=== PATIENT | female | born 1985 | race Caucasian/White ===

== ENCOUNTER 2021-07-18 18:47 | Inpatient (IN) | payer MEDICAID, SELFPAY ==
[2021-07-18] VITALS (46 sets, daily range): BP systolic 113–193; BP diastolic 68–162; PULSE 81–115; TEMP 36.1; O2SAT 77–100
--- NOTE | ~2021-07-18 | US_ITS ---
EXAMINATION: US OB follow up DATE: 07/18/2021 20:10 INDICATION: with contractions. No care. TECHNIQUE: Real-time ultrasound of the pelvis was performed. The interpreting radiologist was not pre sent for the study. COMPARISON: None. FINDINGS: There is a single living fetus in vertex presentation. The placenta is anterior. heart rate is 131 beats per minute (bpm). The amniotic fluid index is 3.3 cm, which is patent and 3 standard torsten ations below the mean (2.5th%-97.5%: 7.2-27.8 at 4 weeks estimated gestational age). The following biometric data were obtained: BPD: 8.4 cm -> 34 weeks 0 days Head circumference: 29.3 cm -> 32 weeks 2 days Abdominal circumference: 30.5 cm -> 34 weeks 3 days Femur length: 6.8 cm -> 35 weeks 0 days Borderline brachycephaly with cephalic index of 87.6 slightly greater within the normal range (70-86) . Head circumference to abdominal circumference ratio: 0.96 (normal range 0.95-1.11). Estimated weight: 2403 g (+/-) 360 g or 5 lbs. 5 oz. (+/-) 13 oz. IMPRESSION: 1. Single living fetus in vertex presentation with heart rate of 131 bpm. 2. Gestational age by ultrasound of 34 weeks 0 day(s) +/- 2 week(s) 3 day(s) with ultrasound estimate d date of delivery (GABRIELE) of 08/29/2021. Please correlate with clinical information or earlier ultrasou nds for most accurate GABRIELE. 3. Oligohydramnios with amniotic fluid index of 3.3 cm. Correlate clinically for leaking fluids. 4. Borderline brachycephaly. Reviewed, dictated and finalized at location [facility]. [facility] IMPRESSION: 1. Single living fetus in vertex presentation with heart rate of 131 bpm. 2. Gestational age by ultrasound of 34 weeks 0 day(s) +/- 2 week(s) 3 day(s) wi th ultrasound estimated date of delivery (GABRIELE) of 08/29/2021. Please correlate w ith clinical information or earlier ultrasounds for most accurate GABRIELE. 3. Oligohydramnios with amniotic fluid index of 3.3 cm. Correlate clinically fo r leaking fluids. 4. Borderline brachycephaly.
[2021-07-18] MEDS: LACTATED RINGERS 1,000 ML 125 ML IV CONT ×2 (19:33→20:20)
[2021-07-18] MEDS: AMPICILLIN 2 GM/NS 100 ML 2 GM/100 ML BAG IVPB (19:33)
--- NOTE | 2021-07-18 19:55 | PM.IMHP ---
H&P: HPI History of Present Illness Date/Time: 07/18/21 19:55 at approximately 33 weeks gestation based on reported LMP. She has had no care anywhere this . She had C section with first two pregnancies then in an ambulance with most recent 02/2020. She came ni with c/o contraction and was 7 cm on admission. She reports checking blood pressures at home with values >200. No MARTINEZ/visual changes. Chief Complaint: labor Review of Systems Review of Systems: All systems reviewed & are unremarkable except as noted in HPI and below Meds Vital Signs Vital Signs - 24 hr 07/18/21 19:33 07/18/21 19:46 Pulse Rate 100 92 Blood Pressure 166/112 H 163/121 H Exam Const: General: alert, awake and acute distress (with contractions) Resp: Auscultation: clear to auscultation bilaterally Cardio: Rate: regular rate Rhythm: regular rhythm GI: Inspection: non-distended GI Palp: Yes Soft to palpation and No Tenderness to palpation present (GI) : Bimanual exam- vagina & uterus: non-tender and enlarged (31-32 cm fundal height) Manual OB Exam: dilated 8 cm, effaced 75% (90%) and station -1 Extrem: General: no calf tenderness Right upper extremity: edema (1+ bilateral) Psych: Mental Status: mental status grossly normal Assessment and Plan Assessment and plan (1) labor in third trimester: Code(s): O60.03 - labor without delivery, third trimester Status: Acute Assessment and Plan: Advanced cervical dilation so unable to stop labor at this time (2) No care in current : Code(s): O09.30 - Supervision of with insufficient care, unspecified trimester Status: Acute Assessment and Plan: Check labs and will request social work consult . Tox screen pending (3) Gestational hypertension: Code(s): O13.9 - Gestational [-induced] hypertension without significant proteinuria, unspecified trimester Status: Acute Assessment and Plan: Possible severe preeclampsia based on severe range BP. Labs drawn and pending. Asymptomatic. Will observe closely and consider magnesium and/or medications if BP persistently elevated (4) Previous delivery, antepartum condition or complication: Code(s): O34.219 - Maternal care for unspecified type scar from previous delivery Status: Acute Assessment and Plan: She had two prior C sections and one . She agrees to proceed with TOLAC/ since she's in advanced labor. We discussed risks, benefits, complications, and alternatives. She expressed understanding and declines C section at this point
[2021-07-18 20:00] LABS: Basophils Absolute Auto 0.1 K/mm3 (0.0-0.1); Basophils Percent Auto 0.4 % (0.2-1.2); Eosinophils Percent Auto 0.2 % (0-4.4); Hematocrit 42.1 % (37.0-47.0); Hemoglobin 14.1 g/dL (12.0-15.0); Immature Granulocyte Absolute 0.04 K/mm3 (0.00-0.031); Immature Granulocyte Percent A 0.3 % (0-0.5); Lymphocytes Absolute Auto 3.42 K/mm3 (0.9-3.2); Lymphocytes Percent Auto 23.4 % (18.3-44.2); Mean Corpuscular HGB Conc 33.5 g/dl (32-36); Mean Corpuscular Hemoglobin 27.4 pg (26-34); Mean Corpuscular Volume 81.9 fl (80-100); Mean Platelet Volume 11.4 fl (7.4-10.4); Monocytes Absolute Auto 0.6 K/mm3 (0.1-0.6); Monocytes Percent Auto 3.8 % (2.6-8.5); Neutrophils Absolute Auto 10.5 K/mm3 (1.3-6.7); Neutrophils Percent Auto 71.9 % (45.5-73.1); Platelet Count Result 204 k/mm3 (150-375); Red Blood Count 5.14 M/mm3 (4.2-5.4); Red Cell Distribution Width 14.2 % (11.5-14.5); White Blood Count 14.6 K/mm3 (4.5-10.0)
[2021-07-18 20:05] LABS: Alanine Aminotransferase 21 U/L (4-35); Albumin Level 3.2 g/dL (3.5-5.1); Alkaline Phosphatase 277 U/L (38-126); Anion Gap 7 mmol/L (8-16); Aspartate Amino Transferase 43 U/L (14-36); Bilirubin,Total 0.4 mg/dL (0.2-1.3); Blood Urea Nitrogen 20 mg/dL (7-17); Carbon Dioxide 20 mmol/L (22-30); Chloride 102 mmol/L (98-107); Estimated Glomerular Filt Rate > 60; Glucose 94 mg/dL (65-110); Potassium 4.2 mmol/L (3.4-5.0); Sodium 129 mmol/L (137-145); Uric Acid 5.5 mg/dL (2.5-7.5)
[2021-07-18 20:07] LABS: Add Urine Microscopic? YES; Amorphous Sediment Urine Few; Appearance Urine Cloudy (Clear); Bacteria Urine Trace /hpf; Bilirubin Urine Negative (Negative); Blood Urine 3+ (Negative); Color Urine Red (Yellow); Glucose Urine UA Negative (Negative); Ketones Urine Negative (Negative); Leukocyte Esterase Ur Trace LEU/UL (NEGATIVE); Mucus Urine Rare /lpf; Nitrate Urine Negative (Negative); Protein Urine 2+ mg/dL (Negative); RBC Urine >75 /hpf (0-2); Squamous Epithelial Cell Urine Few /hpf (Few); Urobilinogen Urine Negative mg/dL (<2.0)
[2021-07-18 20:09] LABS: Specific Grav Ur 1.004 (1.001-1.035)
--- NOTE | 2021-07-18 20:15 | WPDANESEPPF ---
Anes - Initial Pre Proc Eval Procedure: labor epidural Date/Time: 07/18/21 20:15 Surgeon: Soco Duron MD Pre Op Diagnosis: labor pain Pre Op Diagnosis: Contractions Patient Data Age: 35 Gender: F Height: Weight: Last Vital Signs Pulse 96 07/18/21 20:13 BP 146/89 H 07/18/21 20:13 Pulse Ox 98 07/18/21 20:13 Allergies Allergy/AdvReac Type Severity Reaction Status Date / Time No Known Allergies Allergy Verified 07/18/21 20:13 Laboratory Tests 07/18/21 07/18/21 07/18/21 19:37 19:37 19:37 WBC RBC Hgb Hct MCV MCH MCHC RDW Plt Count MPV Immature Gran % (Auto) Neut % (Auto) Lymph % (Auto) [place] % (Auto) Eos % (Auto) Baso % (Auto) Lymph # (Auto) [place] # (Auto) Eos # (Auto) Baso # (Auto) Abs Immat Gran (auto) Absolute Neuts (auto) Absolute Nucleated RBC Nucleated RBC % % Immature Plt Fraction Sodium Potassium Chloride Carbon Dioxide Anion Gap BUN Creatinine Estim Creat Clear Calc Estimated GFR Glucose Uric Acid Calcium Total Bilirubin AST ALT Alkaline Phosphatase Total Protein Albumin Urine Color Red H (Yellow) Urine Appearance Cloudy H (Clear) Urine pH 8.0 (5.0-9.0) Ur Specific [place] 1.004 (1.001-1.035) Urine Protein 2+ mg/dL H mg/dL (Negative) Urine Glucose (UA) Negative mg/dL mg/dL (Negative) Urine Ketones Negative mg/dL mg/dL (Negative) Ur Blood (Man) 3+ H (Negative) Urine Nitrate Negative (Negative) Urine Bilirubin Negative (Negative) Urine Urobilinogen Negative mg/dL mg/dL (<2.0) Ur Leukocyte Esterase Trace BELA/UL H BELA/UL (NEGATIVE) Urine RBC >75 /hpf H /hpf (0-2) Urine WBC 10-15 /hpf H /hpf (0-3) Ur Squamous Epith Cells Few /hpf /hpf (Few) Amorphous Sediment Few H (None) Urine Bacteria Trace /hpf /hpf Urine Mucus Rare /lpf /lpf U Random Total Protein Urine Creatinine Protein/Creat Ratio 2 Urine Opiates Screen Urine Methadone Screen Ur Barbiturates Screen Ur Phencyclidine Scrn Ur Amphetamine Screen U Benzodiazepines Scrn Urine Cocaine Screen U Cannabinoids Screen RPR Hep Bs Antigen Pending HIV 1&2 Ab/P24 Ag 4thGn Pending Rubella IgG Antibody Pending 07/18/21 07/18/21 07/18/21 19:37 19:37 19:37 WBC 14.6 K/mm3 H K/mm3 (4.5-10.0) RBC 5.14 M/mm3 M/mm3 (4.2-5.4) Hgb 14.1 g/dL g/dL (12.0-15.0) Hct 42.1 % % (37.0-47.0) MCV 81.9 fl fl (80-100) MCH 27.4 pg pg (26-34) MCHC 33.5 g/dl g/dl (32-36) RDW 14.2 % % (11.5-14.5) Plt Count 204 k/mm3 k/mm3 (150-375) MPV 11.4 fl H fl (7.4-10.4) Immature Gran % (Auto) 0.3 % % (0-0.5) Neut % (Auto) 71.9 % % (45.5-73.1) Lymph % (Auto) 23.4 % % (18.3-44.2) Isabella % (Auto) 3.8 % % (2.6-8.5) Eos % (Auto) 0.2 % % (0-4.4) Baso % (Auto) 0.4 % % (0.2-1.2) Lymph # (Auto) 3.42 K/mm3 H K/mm3 (0.9-3.2) Isabella # (Auto) 0.6 K/mm3 K/mm3 (0.1-0.6) Eos # (Auto) 0.0 K/mm3 K/mm3 (0-0.3) Baso # (Auto) 0.1 K/mm3 K/mm3 (0.0-0.1)
--- NOTE | 2021-07-18 20:26 | LDADM ---
This patient, Chrystal Goodman, was admitted to Labor/Delivery/Recovery 102 on 07/18/21 at 19:24. Plans for labor, pain management and were discussed with patient. Patient/family oriented to hospital policies and general routines including ID bracelet, bed and alarms, visiting hours, pain management, procedures, bathroom and other care routines, personal items, smoking policy, room service/diet and guest tray routines, infant security routines, and visiting hours. Patient/Family are encouraged to report perceived risks to care and to ask questions if they do not understand what they are told or what they should do. See OBIX for further documentation.
[2021-07-18 20:28] LABS: Creatinine Urine 11.7 mg/dL
[2021-07-18 20:41] LABS: Barbiturate Screen Urine Negative (Negative); Benzodiazepines Screen Urine Negative (Negative)
[2021-07-18 20:42] LABS: Cannabinoid Screen Urine Negative (Negative); Cocaine Screen Urine Negative (Negative); Methadone Screen Urine Negative (Negative); Opiate Screen Urine Negative (Negative); Phencyclidine Screen Urine Negative (Negative)
[2021-07-18 20:43] LABS: Total Protein Urine Random 252 mg/dL; Ur Ttl Prot Creatinine Ratio 21.54 mg/mg (0-0.20)
[2021-07-18 20:44] LABS: Amphetamine Screen Urine Positive (Negative); HIV 1/2 Ab P24 Ag Result Negative (Negative)
[2021-07-18] MEDS: OXYTOCIN 30 UNITS/NS 500 ML 30 UNITS/500 ML BAG 999 UNITS IV CONT (21:18)
--- NOTE | 2021-07-18 21:25 | PM.OBPRVD ---
OB - Delivery Note Procedure Delivery date: 07/18/21 Procedure: Events: No Care, Preeclampsia w severe features and Previous Delivery Intrapartal Events: Decelerations Induction method: None Delivery monitor: External Uterine and Internal FHT Route of delivery: Laceration Description: None Specimen: Yes Quantitative Blood Loss (ml): 95 Anesthesia type: Epidural Disposition: floor Baby Date of : 07/18/21 Time of : 21:13 Weeks of gestation at delivery: 33 Infant gender: Female Weight (pounds): 4 Weight (ounces): 11 presentation: vertex position: Right Occiput Anterior Placenta delivery description: Manual Removal Cord Vessel Description: 3 Vessels, Clamped/Cut and Other (thin)
[2021-07-18] MEDS: OXYTOCIN 30 UNITS/NS 500 ML 30 UNITS/500 ML BAG 125 UNITS IV CONT (22:04)
[2021-07-18] MEDS: MAGNESIUM SULF 4 GM/WATER100ML 4 GM/100 ML BAG IVPB (22:15)
[2021-07-18 22:42] LABS: Hepatitis B Surface Antigen Negative (Negative); Rubella IgG Antibody 54.3 IU/ML
[2021-07-18] MEDS: ceFAZolin 2 GM/D5W 50 ML 2 GM/50 ML BAG IVPB (22:50)
[2021-07-18] MEDS: MAGNESIUM SULF 20GM/WATER500ML 500 ML 50 MG IV CONT (22:58)
[2021-07-18] MEDS: LABETALOL HCL INJ 100 MG/20 ML VIAL 20 MG IV PUSH (23:54)
[2021-07-19] VITALS (22 sets, daily range): BP systolic 126–149; BP diastolic 88–109; PULSE 72–101; RESP 18–22; TEMP 35.9–37.4; O2SAT 95–100; BMI 22.1
--- NOTE | 2021-07-19 01:56 | OBPPTRN ---
Patient transferred to post room #283 via W/C. Support person present. Oriented to unit, room, information board, rooming in, admission packet and security measures. Patient verbalizes understanding.
[2021-07-19 05:04] LABS: Hematocrit 37.4 % (37.0-47.0); Hemoglobin 12.2 g/dL (12.0-15.0)
[2021-07-19] MEDS: IBUPROFEN 600 MG TABLET PO ×3 (05:05→19:41)
[2021-07-19 05:56] LABS: Rapid Plasma Reagin Non-Reactive (NonReactive)
[2021-07-19] MEDS: ACETAMINOPHEN 325 MG TABLET 650 MG PO ×3 (07:53→23:41)
--- NOTE | 2021-07-19 08:00 | PM.OBPNVD ---
OB - PN: Subj Subjective Date/time seen: 07/19/21 08:00 Patient comments: pain well controlled and other (Lochia similar to menses. MARTINEZ but no visual changes. No CP/SOB) [place] baby status: doing well OB - PN: Obj Data Labs CBC & Chem 7: 07/19/21 04:55 07/18/21 19:37 Labs: Laboratory Results - last 24 hr 07/18/21 07/18/21 07/18/21 19:37 19:37 19:37 WBC RBC Hgb Hct MCV MCH MCHC RDW Plt Count MPV Immature Gran % (Auto) Neut % (Auto) Lymph % (Auto) [place] % (Auto) Eos % (Auto) Baso % (Auto) Lymph # (Auto) [place] # (Auto) Eos # (Auto) Baso # (Auto) Abs Immat Gran (auto) Absolute Neuts (auto) Absolute Nucleated RBC Nucleated RBC % % Immature Plt Fraction Sodium Potassium Chloride Carbon Dioxide Anion Gap BUN Creatinine Estim Creat Clear Calc Estimated GFR Glucose Uric Acid Calcium Total Bilirubin AST ALT Alkaline Phosphatase Total Protein Albumin Urine Color Red H Urine Appearance Cloudy H Urine pH 8.0 Ur Specific [place] 1.004 Urine Protein 2+ H Urine Glucose (UA) Negative Urine Ketones Negative Ur Blood (Man) 3+ H Urine Nitrate Negative Urine Bilirubin Negative Urine Urobilinogen Negative Ur Leukocyte Esterase Trace H Urine RBC >75 H Urine WBC 10-15 H Ur Squamous Epith Cells Few Amorphous Sediment Few H Urine Bacteria Trace Urine Mucus Rare U Random Total Protein Urine Creatinine Protein/Creat Ratio 2 Urine Opiates Screen Urine Methadone Screen Ur Barbiturates Screen Ur Phencyclidine Scrn Ur Amphetamine Screen U Benzodiazepines Scrn Urine Cocaine Screen U Cannabinoids Screen RPR Hep Bs Antigen Negative HIV 1&2 Ab/P24 Ag 4thGn Negative Rubella IgG Antibody 54.3 Blood Type Antibody Screen 07/18/21 07/18/21 07/18/21 19:37 19:37 19:37 WBC 14.6 H RBC 5.14 Hgb 14.1 Hct 42.1 MCV 81.9 MCH 27.4 MCHC 33.5 RDW 14.2 Plt Count 204 MPV 11.4 H Immature Gran % (Auto) 0.3 Neut % (Auto) 71.9 Lymph % (Auto) 23.4 [place] % (Auto) 3.8 Eos % (Auto) 0.2 Baso % (Auto) 0.4 Lymph # (Auto) 3.42 H [place] # (Auto) 0.6 Eos # (Auto) 0.0 Baso # (Auto) 0.1 Abs Immat Gran (auto) 0.04 H Absolute Neuts (auto) 10.5 H Absolute Nucleated RBC 0.0 Nucleated RBC % 0.0 % Immature Plt Fraction Sodium 129 L Potassium 4.2 Chloride 102 Carbon Dioxide 20 L Anion Gap 7 L BUN 20 H Creatinine 0.70 Estim Creat Clear Calc Not Reportable Estimated GFR > 60 Glucose 94 Uric Acid 5.5 Calcium 9.0 Total Bilirubin 0.4 AST 43 H ALT 21 Alkaline Phosphatase 277 H Total Protein 7.0 Albumin 3.2 L Urine Color Urine Appearance Urine pH Ur Specific [place] Urine Protein Urine Glucose (UA) Urine Ketones Ur Blood (Man) Urine Nitrate Urine Bilirubin Urine Urobilinogen Ur Leukocyte Esterase Urine RBC Urine WBC Ur Squamous Epith Cells Amorphous Sediment Urine Bacteria Urine Mucus U Random Total Protein 252 Urine Creatinine 11.7 Protein/Creat Ratio 2 21.54 H Urine Opiates Screen Urine Methadone Screen Ur Barbiturates Screen Ur Phencyclidine Scrn Ur Amphetamine Screen U Benzodiazepines Scrn Urine Cocaine Screen U Cannabinoids Screen RPR Hep Bs Antigen HIV 1&2 Ab/P24 Ag 4thGn Rubella IgG Antibody Blood Type Antibody Screen 07/18/21 07/18/21 07/18/21 19:37 19:37 19:37 WBC Cancelled RBC Cancelled Hgb Cancelled Hct Cancelled MCV Cancelled MCH Cancelled MCHC Cancelled RDW Cancelled Plt Count Cancelled MPV Cancelled Immature Gran % (Auto) Cancelled Neut % (Auto) Cancelled Lymph % (Auto) C
--- NOTE | 2021-07-19 08:02 | WPDANLDPN2 ---
Anes-Prog Note L&D Date/Time: 07/19/21 08:02 Comfortable throughout: labor and delivery Neuraxial method: epidural Epidural/Spinal procedure site: clean & non-tender Neuro status: Neuro function grossly intact. Cardiovascular status: normal Respiratory status: normal Airway patency: baseline Mental status: baseline Post-Op hydration status: normal Vital Signs: Last Vital Signs Temp 36.6 C 07/19/21 04:50 Pulse 87 07/19/21 04:50 Resp 18 07/19/21 04:50 BP 133/98 H 07/19/21 04:50 Pulse Ox 100 07/19/21 00:07 Pain score (VAS): 06/12 I/O: Intake & Output 07/18/21 07/19/21 07/19/21 23:59 07:59 15:59 Intake Total 0 500 Output Total 1621 Balance 2050 -1121 Post-procedural complaints: none Patient feedback: Patient satisfied with anesthetic care.
[2021-07-19 09:05] LABS: Magnesium 5.5 mg/dL (1.6-2.3)
[2021-07-19] MEDS: LACTATED RINGERS 1,000 ML 100 ML IV CONT (10:26)
[2021-07-19] MEDS: MAGNESIUM SULF 20GM/WATER500ML 500 ML 25 MG IV CONT ×2 (10:31→12:25)
--- NOTE | 2021-07-19 16:16 | PCCCNOTE ---
Addendum entered by Vioelt Tovar, [facility] 07/27/21 15:34: 2: Baby's umbilical cord drug screen came back positive for methamphetamines and amphetamines. Notified [facility] Mold Burner Charity [phone] and Brie [phone]. Charity requests copy of drug screen results be faxed to [phone]; Care Coordination faxed. Addendum entered by Violet Tovar, [facility] 07/20/21 16:49: 1645: CANTS form completed and faxed to [facility] at [phone] and [phone]. Addendum entered by Violet Tovar, [facility] 07/20/21 11:35: 1130: Recvd phone call from Brie Shea [phone], with DCFS who notified Care Coordination that pt. has multiple DCFS workers involved. Pt's prior kayak maker Tamia may be contacting [facility], as well as pt's new case managers, Trini ([phone]), who is new to pt's case, as of yesterday. Bire states that Charity, who was in previous documentation, is the crime investigator special agent for this new case regarding . DCFS workers aware that it is anticipated pt. will discharge this afternoon. PATRICIO Dominique updated. Addendum entered by Violet Tovar, [facility] 07/20/21 09:37: 07/20: Spoke with Charity, [facility] [employer]er, at [phone]. Charity reports will come see pt. this morning at [facility]. Charity is aware pt. may discharge some time this afternoon. Charity confirms pt. has open DCFS cases regarding her first three children. Charity states will go see the baby at [facility] after she meets with pt. PATRICIO Dominique has been updated. Original Note: Met with pt. and CHAGO Ortiz due to positive drug screen for amphetamines. Baby's urine drug screen was also positive for amphetamines. Baby's umbilical cord screening is pending. Pt. reports she normally lives in [place] with CHAGO Ortiz. Pt. states this is her fourth baby. Pt's oldest child is her 9 year old son, Colin. Colin's legal guardian is pt's mother. Pt. has two daughters, a 3 and 1 year old. Pt's 3 year old daughter lives with the child's grandmother (FOB's mother). Pt's 1 year old daughter lives with foster family who was appointed through [facility] case. Pt. has weekly visits with her two daughters at pt's mother's home. Pt. had little to no care; pt. had at 33 weeks old. Pt. reports thinking of putting up for adoption. Adoption agency resources, counseling, ETOH, and resources provided to pt. [facility] Online Report filed #[id number]. PATRICIO mixon.
[2021-07-19] MEDS: DOCUSATE SODIUM 100 MG CAPSULE PO (16:37)
[2021-07-19] MEDS: SIMETHICONE 80 MG TAB.CHEW PO (23:54)
[2021-07-20] MEDS: IBUPROFEN 600 MG TABLET PO (05:09)
[2021-07-20] MEDS: SIMETHICONE 80 MG TAB.CHEW PO (05:19)
[2021-07-20 05:25] VITALS: BP 156/108; PULSE 100; RESP 22; TEMP 36.7; O2SAT 95
--- NOTE | 2021-07-20 06:05 | PC.NURSE ---
Dr. Duron updated regarding pt's bp's this shift (see flowsheet) and informed that pt c/o chest being tight and heavy . Pt states it is not as bad as it was yesterday, however, finds it difficult to take a deep breath. Lungs are clear bilaterally, slightly diminished to bilateral bases. Occasional dry cough noted. Pulse ox ranging from 94-98% on room air. RR was 22 with last vital signs. Pt does state that mylicon seemed to help slightly. Orders received to start procardia XL 30mg qd. First dose as soon as available per pharmacy. No acute distress noted.
[2021-07-20] MEDS: NIFEdipine 30 MG TAB.ER.24 PO ×2 (07:14→12:37)
--- NOTE | 2021-07-20 07:49 | P.PNOB_ITS ---
OB - PN: Subj Subjective Date/time seen: 07/20/21 07:49 Patient comments: pain well controlled and other (Lochia similar to menses. MARTINEZ last night, resolved. No visual changes) [place] baby status: doing well OB - PN: Obj Data Labs CBC & Chem 7: 07/19/21 04:55 07/18/21 19:37 Labs: Laboratory Results - last 24 hr 07/19/21 08:36 Magnesium 5.5 H OB - PN A/P Assessment and Plan (1) Severe preeclampsia: Code(s): O14.10 - Severe pre-eclampsia, unspecified trimester Status: Acute Assessment and Plan: BP mildly elevated but getting higher, up to 150s/100s. Procardia 30 XL po X 1 given this am. Plan discharge home with procardia daily assuming BP does not worsen Plan day: 2 (s/p vaginal delivery, doing well) Plan: routine care, discharge home and other (Follow up in office in 1-2 weeks) Time Spent With Patient Time: Total time spent is greater than 50% in coordination of care (as documented) at patient's floor/unit and/or counseling patient: Time with patient: less than 15 minutes Exam Const: General: no acute distress GI: Inspection: other (Fundus firm and nontender below umbilicus) GI Palp: Yes Soft to palpation and No Tenderness to palpation present (GI) Extrem: General: no edema
--- NOTE | 2021-07-20 07:51 | PM.OBDSVD ---
DS: Admitting Diagnosis Discharge Date 07/20/2021 (was not discharge, but she signed out AMA) Admitting Diagnosis 33 weeks gestation, labor, severe preeclampsia, amphetamine use DS: Discharge Diagnosis Discharge Diagnosis (1) Severe preeclampsia: Code(s): O14.10 - Severe pre-eclampsia, unspecified trimester Status: Acute (2) , delivered, current hospitalization: Code(s): O34.219 - Maternal care for unspecified type scar from previous delivery Status: Acute (3) Amphetamine abuse: Code(s): F15.10 - Other stimulant abuse, uncomplicated Status: Acute OB - DS: Summary OB Procedures : PIH Mgmt OB Procedures Intrapartum: OB Procedures: : Other (magnesium, PIH management) Peripartum Data Delivery Method: Natural Vaginal Laceration Description: None complications: other (preeclampsia) Status at Discharge Functional status at discharge: independent ambulation Overall status at discharge: patient is progressing back to baseline Time Spent with Patient Time attestation: Total time spent providing and/or coordinating discharge services: Time spent: Less than 30 minutes DS: Data Data Completed and Pending Labs on day of discharge: Labs from last 24 hours 07/19/21 08:36 Magnesium 5.5 H Discharge Plan Discharge Attending physician on discharge: Soco Duron Consulting providers: Patrick Peter Paul Discharging Clinician: Soco Duron Patient Disposition: Left Against Medical Advice Activity: may shower and pelvic rest Diet: as tolerated Patient Instructions: Antibiotic Form Stand Alone Forms: General Discharge Information Follow-up/Referrals: Soco Duron MD [Physician] - 1 Week Discharge Medications: Continued No Home Medications RF: 0 Date of admission: 07/18/21 19:24 Primary Care Provider: PHYSICIAN NOT ON STAFF,NONSTAFF Admitting Provider: Soco Duron Attending physician on admission: Soco Duron Condition: Unstable
[2021-07-20 08:26] VITALS: BP 158/99; PULSE 91; RESP 18; TEMP 36.6; O2SAT 96
[2021-07-20 11:07] VITALS: BP 163/113; PULSE 92; RESP 18; TEMP 36.6; O2SAT 100
[2021-07-20 12:15] VITALS: BP 174/110; PULSE 106; RESP 24; O2SAT 99
--- NOTE | 2021-07-20 13:01 | PC.NURSE ---
Pt. left AMA after receiving second dose of Procardia. Dr. Duron aware. No one in office for patient to have BP check tomorrow. Pt. states she will come back here for follow-up appointment tomorrow at 9:00. Liza Johnson, nurse career services manager, aware. Attempted to call pt to verify but unable to leave message.
--- NOTE | 2021-07-21 11:34 | P.PNOB_ITS ---
OB - PN: Subj Subjective Date/time seen: 07/20/2021 patient signed out AMA OB - PN: Obj Data Labs CBC & Chem 7: 07/19/21 04:55 07/18/21 19:37 OB - PN A/P Plan day: 2 Comments: Patient signed out AMA after being advised to stay another night for i ncreased dose BP medication and continued observation due to severely elevated BP after procardia 30 mg XL po X 1. She was advised that severely elevated BP can lead to several life-threatening medical problems including, but not limited to, seizures, stroke, heart attack, and even . Using illicit substances such as amphetamines (which she tested + for on admission) exacerbate this risk. She expressed understanding and still signed out against medical advice Time Spent With Patient Time: Total time spent is greater than 50% in coordination of care (as documented) at patient's floor/unit and/or counseling patient:
== END 2021-07-20 12:42 | disposition left against medical advice (07) | DRG 560 ==
LOC: ANHOBPP 19:25 → ANHLDR 19:28 → ANHOB2 07-19 02:00
PROVIDERS: Admitting Provider Obstetrics & Gynecology; Visit Provider Obstetrics & Gynecology
DX: O60.14X0 Preterm labor third trimester with preterm delivery third trimester, not applicable or unspecified (principal); Z37.0 Single live birth; Z3A.33 33 weeks gestation of pregnancy; O34.219 Maternal care for unspecified type scar from previous cesarean delivery; O14.14 Severe pre-eclampsia complicating childbirth; O36.8330 Maternal care for abnormalities of the fetal heart rate or rhythm, third trimester, not applicable or unspecified; O99.324 Drug use complicating childbirth; F15.10 Other stimulant abuse, uncomplicated
CPT/HCPCS: 36415; 76816; 80053; 80307; 81001; 82570; 83735; 84156; 84550; 85014; 85018; 85025; 86592; 86703; 86762; 86850; 86900; 86901; 87340; A9270; G0432; J0290; J0690; J2590; J2795; J3475; J7120